=== PATIENT | male | born 1960 | race Caucasian/White ===

== ENCOUNTER 2019-02-21 15:14 | Outpatient (CLI) | payer OTHER, SELFPAY ==
--- NOTE | 2019-02-21 14:30 | DI.RAD_ITS ---
SYMPTOM/DIAGNOSIS: BILAT HIP PAIN BILATERAL HIPS AND PELVIS: There is mild to moderate narrowing of the hip joint spaces, greater superiorly. There is bilateral periarticular spurring, right greater than left. There is some spurring at the inferior SI joints. IMPRESSION: Moderate degenerative changes of both hips.
== END 2019-02-21 15:34 ==
PROVIDERS: PCP Emergency Medicine; Visit Provider Physician Assistant
DX: M25.551 Pain in right hip (principal); M25.552 Pain in left hip; M16.0 Bilateral primary osteoarthritis of hip
CPT/HCPCS: 73501; 73502

== ENCOUNTER 2019-03-30 01:17 | Outpatient (CLI) | payer OTHER, SELFPAY ==
[2019-03-30 10:53] LABS: Anion Gap 6.9 mmol/L (3-11); BUN 13 mg/dL (7-18); CO2 28.1 mmol/L (21.0-32.0); CREATININE 0.85 mg/dL (0.70-1.30); Calcium 8.8 mg/dL (8.5-10.1); Calculated LDL 107 mg/dL; Chloride 106 mmol/L (98-107); Cholesterol 172 mg/dL (50-200); Glucose 99 mg/dL (70-100); HDL Cholesterol 30 mg/dL (40-60); Potassium 4.8 mmol/L (3.5-5.1); Sodium 141 mmol/L (136-145); Triglyceride 179 mg/dL (30-150)
[2019-03-31 11:03] LABS: PSA, Screening 0.9 ng/ml (0-4.5)
== END 2019-03-30 01:37 ==
PROVIDERS: PCP Emergency Medicine; Visit Provider Emergency Medicine
DX: Z00.00 Encounter for general adult medical examination without abnormal findings (principal); I10 Essential (primary) hypertension; Z12.5 Encounter for screening for malignant neoplasm of prostate
CPT/HCPCS: 36415; 80048; 80061; 84153

== ENCOUNTER 2020-05-17 07:05 | Day surgery (SDC) | payer OTHER, SELFPAY ==
[2020-05-17 07:16] VITALS: BP 134/80; PULSE 69; RESP 20; TEMP 36.4; O2SAT 97
[2020-05-17] MEDS: Lactated Ringers 1,000 ML 80 ML IV (07:39)
--- NOTE | 2020-05-17 08:27 | W.PM.HP.N ---
Date of service: 05/17/20 Time of Service: 08:28 Assessment and Plan Assessment and plan (1) Hearing loss: Status: Acute (2) Low back pain: Status: Acute (3) Obstructive sleep apnea: Status: Acute (4) Colon cancer screening: Status: Acute Assessment and plan: Informed consent is obtained for the procedural (explained in simple layman's terms that the pt and/or family could understand) explaining risks vs benefits and alternatives to the procedure and consequences if we do not do the procedure and need/rational for the procedure. Risks include but are not limited to: bleeding, infection, perforation of esophagus, stomach, colon, small intestines, bronchus or trachea, or PTX. This would necessitate emergency surgery to repair the damage w/ possible ostomy; and other associated complications w/ the required surgery. Also complications of anesthesia including aspiration, NE/CVA/. History of Present Illness Consults Consult date: 05/17/20 Narrative: HPI 60 y/o male with history of HTN and GERD presents for colonoscopy screening pre-op. His last screening was in 2008, which was unremarkable. He denies a family history of colon cancer. He denies any changes in bowel habits including bloody or black tarry stools, abdominal pain, diarrhea or constipation. He denies constitutional symptoms. Denies use of marijuana or any other recreational or illegal drugs. Last Echo in 2018 showed EF 65-70%, Aorta was mildly dilated at 3.7cm He denies prior history or family history of adverse reactions or complications with anesthesia. He walks daily and plays golf on a weekly basis for physical activity. His last screening was in 2008 and was unremarkable. He has no family history of colon cancer. He has not had any bowel habit changes. Informed consent is obtained for the procedural (explained in simple layman's terms that the pt and/or family could understand) explaining risks vs benefits and alternatives to the procedure and consequences if we do not do the procedure and need/rational for the procedure. Risks include but are not limited to: bleeding, infection, perforation of esophagus, stomach, colon, small intestines, bronchus or trachea, or PTX. This would necessitate emergency surgery to repair the damage w/ possible ostomy; and other associated complications w/ the required surgery. Also complications of anesthesia including aspiration, NE/CVA/ Review of Systems All systems reviewed & are unremarkable except as noted in HPI and below PFSH Medical History Benign hypertension (08/27/12) Benign prostatic hyperplasia Complete tear of right rotator cuff (12/10/16) surgical repair 2017 Family history of abdominal aortic aneurysm (12/07/13) one brother AAA Family history of thoracic aortic aneurysm (12/07/13) 2 brothers with aneur Generalized osteoarthrosis right hip djd right shoulder rotator cuff lesion Generalized osteoarthrosis right hip djd right shoulder rotator cuff lesion Hearing loss right Low back pain Obstructive sleep apnea (08/11/17) Other retinal detachments left; vision loss Pityriasis versicolor Pupillary abnormality, right (01/03/15) Unilateral inguinal hernia right Surgical History Colonoscopy - MAC 2008;NEG H/O eye surgery L eye, detached retina Rotator Cuff Repair Family History Mother , 92 Essential hypertension Father , 79 Stroke Sister Essential hypertension Brother , 52 Essential hypertension Stomach cancer Brother , 62 Heart disease Colon cancer Maternal Grandfather Stroke Paternal Grandfather No problems noted. Maternal Grandmother No problems noted. Paternal Grandmother No problems noted. Sister No problems noted. Sister No problems noted. Brother , 69 No problems noted. Son No problems noted. Daughter No problems noted. Social History Smoking/Tobacco Use Status: Never Second Hand Exposure: No Smoking risk assessment performed?: Yes Alcohol Intake: current Alcohol Intake frequency: a few times a week Alcohol type: beer Drug use: Never Substance use type: does not use Caregiver/Support person: No Household members: spouse Housing: house Communication Needs: None Do you need help understanding health information?: Never Pets and animals: Yes Pets and animals: dog(s) Sexually active: Yes Do you think of yourself as: straight/heterosexual Current gender identity: male What is your relationship status?: How often do you talk on the phone with friends or family?: twice per week How often do you get together with friends or relatives?: once per week How often do you attend pres[employer]beter[employer] or advent services?: decline to answer Do you belong to any clubs or organized social groups?: no Panel score (0-1 are the most socially isolated patients): 2 What type of physical activity do you participate in: walking and other Details: golf Duration: 30-45 minutes/day Frequency: 3-4 times per week Lynn/Buddhism: Denominational Special lynn needs: No Seatbelt use: always Helmet use: No Drive intox or ride w/intox coach tour driver: No Do you feel safe at home: Yes Do you feel safe in your relationship?: Yes Meds Home Medications and Allergies Home Medications Medication Instructions Recorded Confirmed Type amlodipine 5 mg PO HS 05/15/20 05/17/20 History lisinopril 20 mg PO HS 05/15/20 05/17/20 History pantoprazole 40 mg PO HS 05/15/20 05/17/20 History Allergies Allergy/AdvReac Type Severity Reaction Status Date / Time No Known Drug Allergies Allergy Verified 05/15/20 13:18 Exam Narrative Exam Narrative: GENERAL APPEARANCE: Alert, healthy appearance, oriented, in no acute distress SKIN: No hyperpigmentation, vitiligo, or suspicious lesions No rashes. HYDRATION: Well hydrated HEAD, EYES, EARS, NECK, AND THROAT: Head is normocephalic, pupils equal, round, reactive to light and accommodation, ocular movement intact, sclera clear and no jaundice. Dentition intact. NECK: Supple, no lymphadenopathy. Trachea midline. LUNGS: normal respiration, clear to auscultation HEART: Regular rate and rhythm, EXTREMITY: No edema or cyanosis ABDOMEN: No hepatosplenomegaly, non tender to palpation, no masses or distention, no hernias. Normal bowel sounds NEURO: no focal neuro deficits. Results Last Vital Signs Temp 36.4 C L 05/17/20 07:16 Pulse 69 05/17/20 07:16 Resp 20 05/17/20 07:16 BP 134/80 05/17/20 07:16 Pulse Ox 97 05/17/20 07:16 COVID-19 Screening Have you,or household,traveled outside [place] in last 14 days?: No Had IN PERSON contact w/suspected or confirmed C-19 person: No
--- NOTE | 2020-05-17 09:18 | W.COLOREPORT ---
Date of service: 05/17/20 Time of Service: 09:18 Colonoscopy Report Date of procedure: 05/17/20 Pre-op diagnosis general: screen Post-op diagnosis procedure note: same Surgeon: Wanda Alejandre Anesthesia proc note operative: GETA Estimated blood loss (mL): 0 Pathology: none sent Complications: None Disposition: same day Prep: Miralax/Dulcolax Retraction Time: 10 mins Procedure Description: After informed consent was obtained the patient was taken to the procedure room and placed in a left decubitous position. Monitors were applied and a time out was done. The patients name, date of , procedure, allergies to medications and metal in their body was reviewed. The patient was then sedated. Once sedated and comfortable a rectal exam was done. External exam was normal. Internal exam revealed a normal sphincter tone and no palpable masses. The prostate nl. The scope was then introduced and retrofelexed. No internal hemorrhoids were identified. The scope was then advanced to the cecum w/ mild difficulty. 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 The TI and appendiceal orifice were identified. The prep was good. The scope was then slowly retracted over 10 minutes back into the rectum. There are no polyps diverticula or strictures apparent. There are no AVMs. The mucosa is pink an dhealthy. The scope was removed and the patient was woken up and taken back to Same day surgery in stable condition. The patient tolerated the procedure well and there were no immediate complications. Follow up: The patient should follow up in 10 years unless they develop changes in bowel habits or other new gastrointestinal complaints.
[2020-05-17] MEDS: Dicyclomine 20 MG TAB PO (09:38)
[2020-05-17 09:50] VITALS: BP 148/104; PULSE 61; RESP 18; TEMP 37; O2SAT 96
--- NOTE | 2020-05-17 10:27 | W.PM.DSUDISC ---
Discharge Plan Disposition Patient Disposition: HOME Condition: Good Discharge Details Reason For Visit: colon can screen Attending Provider: Wanda Alejandre Primary Care Provider: Amarjit Patel Home Meds and New Rx's Prescriptions: No Action lisinopril 20 mg tablet 20 mg PO HS RF: 0 amlodipine 5 mg tablet 5 mg PO HS RF: 0 pantoprazole 40 mg tablet,delayed release (DR/EC) 40 mg PO HS RF: 0 Discharge Instructions Additional Instructions: Findings:normal Follow up:repeat in 5 yrs time Please call if you develop: fevers >101.5 Nausea or Vomiting Abdominal pain that is not transient DAY SURGERY UNIT POST COLONOSCOPY INSTRUCTIONS 1. Because there will be medication in your system for the next 24 hours, you may feel a little sleepy. Your coordination will be affected. Therefore: a. Do not drive or operate dangerous equipment for 24 hours. b. Do not drink alcohol beverages for 24 hours (not even beer). c. Plan to go home and rest for the day. 2. Generally there are no restrictions on your activity after a day or so has gone by, but you may feel a bit fatigued for a few days. 3 After you arrive home you may have a light meal and return to a normal diet as you can tolerate it without feeling sick to your stomach. 4. After surgery, you may feel pain or discomfort. This should be only transient, but if it persists please contact your doctor. 5. If there are any questions regarding the findings of your procedure, please feel free to contact your doctor. 6. If you are unable to contact your doctor with a problem, contact the hospital at [phone]. 7. Continue all your regular medications unless directed otherwise. I understand the above instructions and have no questions. Signature of Patient or Responsible Adult Escort Date/Time Name of Responsible Adult Escort Signature of Nurse Date/Time Stand Alone Forms: Emi Dewey (LJU) Activity:: No lifting over 20 pounds or strenuous activity x24 hours Diet:: Small light meals x24 hours Discharge Orders Discharge Orders: Discharge Order (Routine); Ordered 05/17/20 Ordered By: Wanda Alejandre DS: Diagnosis Discharge Diagnosis (1) Hearing loss: Status: Acute (2) Low back pain: Status: Acute (3) Obstructive sleep apnea: Status: Acute (4) Colon cancer screening: Status: Acute
== END 2020-05-17 10:38 | disposition home or self-care (01) ==
PROVIDERS: PCP Emergency Medicine; Visit Provider Surgery
PROC: 0DJD8ZZ Inspection of Lower Intestinal Tract, Via Natural or Artificial Opening Endoscopic (ICD-10-PCS; CPT 45378; principal; 2020-05-17 08:30)
DX: Z12.11 Encounter for screening for malignant neoplasm of colon (principal); G47.33 Obstructive sleep apnea (adult) (pediatric)
CPT/HCPCS: 45378; 99221; J2001

== ENCOUNTER 2020-07-21 13:45 | Outpatient (REF) | payer OTHER, SELFPAY ==
[2020-07-24 09:54] LABS: COVID-19 RT-PCR Result NEGATIVE (Negative)
== END 2020-07-21 14:05 ==
LOC: LBN 13:45
PROVIDERS: PCP Emergency Medicine; Visit Provider Pediatrics
DX: Z11.59 Encounter for screening for other viral diseases (principal)
CPT/HCPCS: U0003

== ENCOUNTER 2020-10-24 09:37 | Outpatient (CLI) | payer OTHER, SELFPAY ==
[2020-10-25 15:13] LABS: COVID-19 RT-PCR UVMMC Result Negative (Negative)
== END 2020-10-24 09:38 | disposition home or self-care (01) ==
LOC: LBO 09:37
PROVIDERS: PCP Emergency Medicine; Visit Provider Emergency Medicine
DX: Z20.822 Contact with and (suspected) exposure to COVID-19 (principal)
CPT/HCPCS: U0003

== ENCOUNTER 2020-10-30 02:53 | Outpatient (CLI) | payer OTHER, SELFPAY ==
[2020-10-31 12:25] LABS: COVID-19 RT-PCR UVMMC Result Negative (Negative)
== END 2020-10-30 02:54 | disposition home or self-care (01) ==
LOC: LBO 02:53
PROVIDERS: PCP Emergency Medicine; Visit Provider Emergency Medicine
DX: Z20.822 Contact with and (suspected) exposure to COVID-19 (principal)
CPT/HCPCS: U0003

== ENCOUNTER 2020-11-26 03:05 | Outpatient (CLI) | payer OTHER, SELFPAY ==
[2020-11-27 17:56] LABS: COVID-19 RT-PCR UVMMC Result Negative (Negative)
== END 2020-11-26 03:06 | disposition home or self-care (01) ==
LOC: LBO 03:05
PROVIDERS: PCP Emergency Medicine; Visit Provider Emergency Medicine
DX: Z20.822 Contact with and (suspected) exposure to COVID-19 (principal)
CPT/HCPCS: U0003

== ENCOUNTER 2021-04-29 16:12 | Outpatient (REF) | payer OTHER, SELFPAY ==
[2021-05-01 15:35] LABS: COVID-19 RT-PCR UVMMC Result Negative (Negative)
== END 2021-04-29 16:13 | disposition home or self-care (01) ==
LOC: LBN 16:12
PROVIDERS: PCP Emergency Medicine; Visit Provider Nurse Practitioner Family
DX: Z20.822 Contact with and (suspected) exposure to COVID-19 (principal)
CPT/HCPCS: U0003

== ENCOUNTER 2021-06-04 18:02 | Outpatient (REF) | payer OTHER, SELFPAY ==
[2021-06-06 10:16] LABS: COVID-19 RT-PCR UVMMC Result Negative (Negative)
== END 2021-06-04 18:03 | disposition home or self-care (01) ==
LOC: LBN 18:02
PROVIDERS: PCP Emergency Medicine; Visit Provider Family Medicine
DX: Z20.822 Contact with and (suspected) exposure to COVID-19 (principal); J06.9 Acute upper respiratory infection, unspecified
CPT/HCPCS: U0003

== ENCOUNTER 2021-09-27 10:53 | Outpatient (CLI) | payer OTHER, SELFPAY ==
--- NOTE | 2021-09-27 11:00 | RT.EKG_ITS ---
APPROVED REPORT Exam: Resting ECG Reason for Exam: syncope Patient Location: O HR:57 bpm ECG Measurements Heart Rate 57 AXIS UT 183 P 48 QRSd 91 QRS 64 QT 425 T 39 QTc 413 Conclusion Sinus bradycardia...rate< 60 Normal Electrocardiogram
== END 2021-09-27 10:54 | disposition home or self-care (01) ==
PROVIDERS: PCP Family Medicine; Visit Provider Family Medicine
DX: I10 Essential (primary) hypertension (principal); R55 Syncope and collapse; Z12.5 Encounter for screening for malignant neoplasm of prostate
CPT/HCPCS: 93010

== ENCOUNTER 2021-11-08 01:59 | Outpatient (CLI) | payer OTHER, SELFPAY ==
[2021-11-08 14:19] LABS: HCT 42.9 % (40.0-50.0); HGB 14.5 g/dL (13.5-17.5); MCH 30.9 pg (27.0-33.0); MCHC 33.8 % (32.0-36.0); MCV 91.5 fL (80-95); MPV 9.2 fL (8.0-11.0); Platelet Count 225 10^3/uL (130-400); RBC 4.69 10^6/uL (4.36-5.78); RDW 12.7 % (11.8-14.1); RDW-SD 42.1 fL; WBC 7.23 10^3/uL (4.4-10.8)
[2021-11-08 15:02] LABS: ALT 60 U/L (16-63); AST 29 U/L (15-37); Albumin 3.9 g/dL (3.4-5.0); Alkaline Phosphatase 58 U/L (46-116); Anion Gap 7.5 mmol/L (3-11); BUN 13 mg/dL (7-18); Bilirubin, Total 0.4 mg/dL (0.2-1.0); CO2 27.5 mmol/L (21.0-32.0); CREATININE 0.9 mg/dL (0.70-1.30); Calcium 8.5 mg/dL (8.5-10.1); Calculated LDL 89 mg/dL (<100); Chloride 105 mmol/L (98-107); Cholesterol 177 mg/dL (<200); Glucose 96 mg/dL (74-106); HDL Cholesterol 28 mg/dL (40-60); Potassium 3.7 mmol/L (3.5-5.1); Sodium 140 mmol/L (136-145); Total Protein 7.3 g/dL (6.4-8.2); Triglyceride 300 mg/dL (<150)
[2021-11-08 21:41] LABS: PSA, Screening 0.8 ng/mL (<=4.5)
== END 2021-11-08 02:00 | disposition home or self-care (01) ==
LOC: LBO 01:59
PROVIDERS: PCP Family Medicine; Visit Provider Family Medicine
DX: I10 Essential (primary) hypertension (principal); R55 Syncope and collapse; Z12.5 Encounter for screening for malignant neoplasm of prostate
CPT/HCPCS: 36415; 80053; 80061; 84153; 85027

== ENCOUNTER 2022-08-18 12:43 | Outpatient (CLI) | payer OTHER, SELFPAY ==
--- NOTE | 2022-08-18 11:15 | DI.RAD_ITS ---
Exam(s) XR SHOULDER LT COMPLETE 2+V EXAM: XR SHOULDER LT COMPLETE 2+V CLINICAL HISTORY: pain and swelling, M25.512. TECHNIQUE: 2D digital imaging was performed of the left shoulder. Five images were obtained. AP, G rashey, Y-view and axillary views were obtained. COMPARISON: CR LEFT SHOULDER COMPLETE from 09/16/2011 FINDINGS: BONES: No acute fracture is present. No bony destructive lesion is seen. JOINTS: No dislocation present. There are hypertrophic changes seen at the acromioclavicular joint. Mild spurring is seen at the greater tuberosity. SOFT TISSUE: Normal. IMPRESSION: Degenerative changes of the left shoulder as described. DATA REPOSITORY: RADIATION DOSE DELIVERED:
== END 2022-08-18 13:03 ==
LOC: DI 12:43
PROVIDERS: PCP Nurse Practitioner Family; Visit Provider Nurse Practitioner Family
DX: M25.512 Pain in left shoulder (principal); M75.82 Other shoulder lesions, left shoulder; M25.812 Other specified joint disorders, left shoulder
CPT/HCPCS: 73030

== ENCOUNTER 2022-09-10 01:20 | Outpatient (CLI) | payer OTHER, SELFPAY ==
--- NOTE | 2022-09-10 06:45 | DI.CT_ITS ---
Exam(s) CT ABDOMEN PELVIS W EXAM: CT ABDOMEN PELVIS W CLINICAL HISTORY: concern for Virchow's node,soft tissue swelling, f/u abnl imaging,R22.9 TECHNIQUE: Imaging Protocol: Axial computed tomography images with coronal and sagittal reformatted images were created and reviewed CONTRAST MATERIAL: Intravenous: Omnipaque 350 Contrast volume:100 mL Oral: Yes COMPARISON: No exams were available for comparison FINDINGS: ABDOMEN: Lung Bases: Normal where visualized. Liver: Normal density. There are few tiny hypodensities seen in the liver. They are too small for fu rther characterization. No suspicious hepatic masses are seen. There is a 0.9 cm cyst in the left l obe of the liver. Portal, Superior Mesenteric, and Splenic Veins: Unremarkable. Gallbladder and Biliary Tract: No radiodense calculus or dilation. Pancreas: Normal density, no abnormal calcifications or inflammatory process. Spleen: Normal. Adrenals: No masses seen. Kidneys: Normal size, contour and axis. No radiodense stones or obstructive uropathy. There are bilat eral simple renal cysts. No follow-up is recommended. The largest is in the left kidney and measure s 3.9 x 4.3 cm. No solid renal masses are present. Abdominal Aorta: Abdominal portion non-dilated. There is mild atherosclerosis. Bowel: No obstruction or bowel wall thickening. Appendix is unremarkable. There is a diverticulum ass ociated with the 2nd portion of the duodenum. Peritoneal Cavity: No ascites, collection or mesenteric inflammatory response. No free air. Lymph Nodes: Within normal limits. Bones: Within normal limits for the patient's age. No aggressive osseous lesions. Soft Tissues: Unremarkable. PELVIS: Bladder: There is mild diffuse thickening of the wall of the urinary bladder. This may be due to unde rdistention. No pericystic inflammatory changes are seen. Chronic bladder outlet obstruction may also have this appearance. Reproductive Organs: Mildly enlarged prostate gland. Lymph Nodes: Within normal limits. Bones: Within normal limits for the patient's age. IMPRESSION: 1. No acute abdominal pelvic process. No evidence of an abdominal pelvic mass. 2. Mildly enlarged prostate gland. 3. Mild diffuse thickening of the wall of the urinary bladder. This may be due to underdistention. An inflammatory or infectious process cannot be entirely excluded. Chronic bladder outlet obstruction s hould also be considered. RADIATION DOSE DELIVERED: 743.78mGy.cm Total DLP DATA REPOSITORY: All CT scans at this facility are submitted to the National Radiology Data Registry (NRDR) Dose Index Registry (DIR) with the [employer] (ACR). RADIATION OPTIMIZATION: All CT scans at this facility use at least one of these dose optimization te chniques: automated exposure control; mA and/or kV adjustment per patient size (includes targeted exa ms where dose is matched to clinical indication); or iterative reconstruction.
[2022-09-10 08:15] LABS: CREATININE 0.9 mg/dL (0.70-1.30); Estimated GFR 95.97 (mL/min/1.73m2)
[2022-09-10] MEDS: Barium Sulfate 2% W/V-Berry Smoothie 450 ML BTL PO (08:32)
[2022-09-10] MEDS: Omnipaque 350 MG/ML 500 ML BTL-Imaging package IJ (09:13)
[2022-09-10] MEDS: Normal Saline - Diluent 50 ML VIAL IJ (09:14)
== END 2022-09-10 01:40 ==
LOC: DI 01:20
PROVIDERS: PCP Nurse Practitioner Family; Visit Provider Nurse Practitioner Family
DX: R19.09 Other intra-abdominal and pelvic swelling, mass and lump (principal); Z01.812 Encounter for preprocedural laboratory examination; K76.89 Other specified diseases of liver; N28.1 Cyst of kidney, acquired; N32.89 Other specified disorders of bladder; N40.0 Benign prostatic hyperplasia without lower urinary tract symptoms; R22.1 Localized swelling, mass and lump, neck
CPT/HCPCS: 74177; 82565

== ENCOUNTER 2022-09-23 02:06 | Outpatient (CLI) | payer OTHER, SELFPAY ==
--- NOTE | 2022-09-23 06:30 | DI.MRI_ITS ---
Exam(s) MR UPPER JOINT LT WO EXAM: MR UPPER JOINT LT WO CLINICAL HISTORY: ? ROTATOR CUFF TEAR,lt shoulder pain, m25.512 TECHNIQUE: Multiplanar multisequence MRI of the shoulder was performed. COMPARISON: CR XR SHOULDER LT COMPLETE 2+V from 08/18/2022 FINDINGS: MARROW:There is no evidence of fracture, Hill-Sachs deformity, nor ominous osseous lesions. ROTATOR CUFF MECHANISM: AC JOINT/ACROMIUM: There is significant degenerative changes at the AC joint with some impingement th is level.. There is no evidence of os acromiale. Supraspinatus: There is a full-thickness tear the supraspinatus tendon with retraction musculotendino us junction to the mid humeral head level. No prominent muscle belly atrophy. Infraspinatus: Intact. No evidence of tear nor muscle atrophy. Teres Minor: Intact. No evidence of tear nor muscle atrophy. Subscapularis/anterior cuff: Some tendon thinning but no high-grade tear. BICEPS TENDON: Biceps tendon within the intertubercular groove is significantly thinned and is perche d over the lesser tuberosity. LABRUM: Some in signal is seen within the anterior labrum. There is no prominent labral tear despite the intra-articular biceps been quite thin. No evidence of paralabral cyst. Inferior glenohumeral ligament appears intact. GLENOHUMERAL JOINT: There are significant osteoarthritic degenerative changes. Some chondral narrowi ng. Also osteophytes. Small osteophyte on the inferior articular surface of the humeral head. Also anteriorly at the level the lesser tuberosity over which the attenuated biceps tendon is stretched. Small amount of increased joint fluid. Some synovial thickening is noted in the inferior recess. T here is no obvious loose intra-articular bodies. QUADRILATERAL SPACE: No evidence of mass in the region of the axillary nerve and dorsal circumflex hu meral vessels. Visualized triceps muscle at this level appears unremarkable. IMPRESSION: 1. Prominent full-thickness tear of the rotator tear cuff supraspinatus tendon with retraction of the musculotendinous junction to the level of the mid humeral head. Infraspinatus and teres minor are i ntact. Some attenuation of the anterior cuff-subscapularis but without high-grade tear. 2. Biceps tendon is significantly thinned and is perched over bony excrescence-osteophyte at the leve l of the anterior tibial tubercle. Intra-articular aspect of the biceps is significantly attenuated. No prominent labral tear identified. No evidence of paralabral cyst. 3. Significant osteoarthritic degenerative changes in the glenohumeral joint. Small joint effusion a nd some synovial thickening in the inferior recess. No obvious loose intra-articular bodies. DATA REPOSITORY:
== END 2022-09-23 02:26 ==
LOC: DI 02:06
PROVIDERS: PCP Nurse Practitioner Family; Visit Provider Student in an Organized Health Care Education/Training Program
DX: M25.512 Pain in left shoulder (principal); M75.121 Complete rotator cuff tear or rupture of right shoulder, not specified as traumatic; M67.814 Other specified disorders of tendon, left shoulder; M25.412 Effusion, left shoulder; M19.012 Primary osteoarthritis, left shoulder; M67.812 Other specified disorders of synovium, left shoulder
CPT/HCPCS: 73221

== ENCOUNTER 2022-10-24 06:08 | Day surgery (SDC) | payer OTHER, SELFPAY ==
[2022-10-24] VITALS (11 sets, daily range): BP systolic 84–151; BP diastolic 51–108; PULSE 61–83; RESP 14–23; TEMP 36.3–37.1; O2SAT 93–97; BMI 29.2
--- NOTE | 2022-10-24 06:46 | W.ANESPRE ---
General Info Date of Service Date Performed: 10/24/22 Height: 5 ft 5 in Weight: 79.8 kg Body Mass Index (BMI): 29.2 Surgical Procedure: Operation Date: 10/24/22 07:40 Proposed Procedure Side Surgeon p Shoulder Rotator Cuff Arthroscopic w/Extensive Debridement, Biceps Tenodesis, Subacromial Decompression Left Michael Hung MD Meds Allergies and Home Medications Allergies Allergy/AdvReac Type Severity Reaction Status Date / Time No Known Drug Allergies Allergy Verified 10/23/22 12:03 Home Medication Medication Instructions Recorded amlodipine 5 mg tablet 5 mg PO HS #90 tabs 02/05/22 pantoprazole 40 mg tablet,delayed 40 mg PO HS #90 tabs 10/22/22 release losartan 100 1 tab PO HS 10/23/22 mg-hydrochlorothiazide 25 mg tablet aspirin 81 mg tablet,delayed 81 mg PO DAILY prevent blood clot 10/24/22 release 7 days #7 tabs naproxen 250 mg tablet 250 - 500 mg PO BID PRN #40 tabs 10/24/22 oxycodone 5 mg tablet 5 - 10 mg PO Q4H PRN moderate to 10/24/22 severe pain #18 tabs Current Visit Medications: Current Medications Generic Name Dose Route Start Last Admin Trade Name Freq PRN Reason Stop Dose Admin Ringer's Solution 1,000 mls @ 30 mls/hr 10/24/22 06:00 IV 11/22/22 23:59 INFUSION JAKUB Cefazolin Sodium/Dextrose 2 gm in 50 mls @ 100 mls/hr 10/24/22 06:00 Ancef Duplex IVPB 11/22/22 23:59 PREOP JAKUB IV Miscellaneous Supplies 1 each 10/24/22 06:00 Iv Access IV 11/22/22 23:59 DIRECTED JAKUB Sodium Chloride 0 ml 10/24/22 06:00 Normal Saline Flush 10 Ml Syr IV 11/22/22 23:59 PRN PRN Sodium Chloride 0 ml 10/24/22 06:00 Normal Saline 10 Ml Vial IJ 11/22/22 23:59 DIRECTED PRN Sterile Water 0 ml 10/24/22 06:00 Water,Injection,Sterile 10 Ml Vial IJ 11/22/22 23:59 DIRECTED PRN PFSH Active Problems Active Problems: Problem Status Onset Code Bursitis of left shoulder M75.52 Impingement syndrome of left shoulder M75.42 Tendinitis of long head of biceps brachii of left shoulder M75.22 Left rotator cuff tear M75.102 Pityriasis versicolor B36.0 Other retinal detachments H33.8 Obstructive sleep apnea 08/11/17 G47.33 Low back pain M54.5 Hearing loss H91.90 Family history of abdominal aortic aneurysm 12/07/13 Z82.49 Benign prostatic hyperplasia N40.0 Vision loss of left eye H54.62 Essential hypertension I10 Left shoulder pain M25.512 Soft tissue swelling R22.9 Medical History Medical History (Updated 10/24/22 @ 07:15 by Michael Hung MD) Bursitis of left shoulder Generalized osteoarthrosis right hip djd right shoulder rotator cuff lesion Impingement syndrome of left shoulder Pupillary abnormality, right (01/03/15) Tendinitis of long head of biceps brachii of left shoulder Surgical History Surgical History Colonoscopy - MAC 2008;NEG H/O eye surgery L eye, detached retina Rotator Cuff Repair Tobacco Smoking/Tobacco Use Status: Never Passive smoking exposure: Yes Second hand exposure: Yes Alcohol Alcohol Intake: current Alcohol intake frequency: holidays/special occasions only Alcohol type: beer, wine and hard liquor Substance Use Substance use: Never Substance use type: does not use Vital Signs and Lab Results Vital Signs Most Recent Vital Signs in EMR: Most Recent Vital Signs Temp Pulse Resp BP Pulse Ox 36.7 C 78 16 134/89 97 10/24/22 06:19 10/24/22 06:19 10/24/22 06:19 10/24/22 06:19 10/24/22 06:19 Lab Results Blood Type / Crossmatch: No Data to Display Complete Blood Count: No Data to Display Complete Metabolic Panel: No Data to Display Liver Function Panel: No Data to Display Coagulation Panel: No Data to Display Cardiac Panel: No Data to Display Arterial Blood Gas: No Data to Display Venous Blood Gas: No Data to Display Pancreas Panel: No Data to Display Thyroid Panel: No Data to Display Infectious Disease: No Data to Display Blood Cultures: No Data to Display Toxicology Panel: No Data to Display Anesthesia Assessment and Plan Anesthesia History Personal History: No History of Anesthesia Complications Family History: No Family History of Anesthesia Complications Exercise Tolerance Exercise Tolerance: Metabolic Equivalents>4 Pertinent Negatives Pertinent Negatives: No Symptoms of GERD, No Major Cardiovascular Symptoms or Complaints, No Major Pulmonary Symptoms or Complaints and No History of CVA/TIA Cardiac & Pulmonary Exam Cardiac Exam: Normal S1/S2 Heart Sounds Pulmonary Exam: Clear Bilateral Breath Sounds Implantable Cardiac Device Does patient have a Pacemaker or an ICD?: No Airway Exam Known Difficult Airway: No Mallampati Class: 2 Mouth Opening: Normal (> 3cm) Thyromental Distance: Greater than 3 cm Neck Range of Motion: Full ROM Neck Circumference: Normal Teeth Condition: Normal Dentition ASA Classification ASA Score: ASA 2 Emergency Case?: No NPO Status NPO Status: NPO Clears >2 hours, Solids >8 hours Anesthesia Plan Resuscitation Status: Full Code Anesthesia Technique: General Anesthesia Airway Planned: Endotracheal Tube Pain Management: Surgeon and patient request nerve block Monitors Used: Standard Monitors
[2022-10-24] MEDS: Lactated Ringers 1,000 ML 30 ML IV (07:10)
--- NOTE | 2022-10-24 07:14 | W.PM.DSUDISC ---
Date of service: 10/24/22 Time of Service: 11:30 Discharge Plan Disposition Patient Disposition: Home Discharge Details Attending Provider: Michael Hung Primary Care Provider: Kee Portillo Home Meds and New Rx's Prescriptions: New naproxen 250 mg tablet 250 - 500 mg PO BID PRNQty: 40 0RF Rx Instructions: take with a meal aspirin 81 mg tablet,delayed release (DR/EC) 81 mg PO DAILY 7 Days Qty: 7 0RF oxycodone 5 mg tablet 5 - 10 mg PO Q4H MDD 30 mg PRN (Reason: moderate to severe pain) Qty: 18 0RF Continued amlodipine 5 mg tablet 5 mg PO HS Qty: 90 3RF pantoprazole 40 mg tablet,delayed release (DR/EC) 40 mg PO HS Qty: 90 3RF losartan-hydrochlorothiazide 100-25 mg tablet 1 tab PO HS Discharge Instructions Additional Instructions: Surgery: Left shoulder arthroscopy with rotator cuff repair (supraspinatus), biceps tenodesis, extensive debridement, and subacromial decompression. Activity: For 6 weeks, you should keep your arm at your side in a neutral position at all times except for physical therapy. Do not try to lift or raise your arm using your own muscles. You should use the sling whenever you are out of the house. You may have to adjust the abduction pillow or remove it for comfort. At home it is best to remove the sling and rest the arm on a pillow at your side or support the operative side with your other hand. You may allow the arm to dangle at your side. A physical therapy prescription will be sent electronically to begin in about 3 weeks. Prescriptions: Aspirin 81 mg take 1 daily to prevent a blood clot for 7 days Naproxen 250 mg take 1-2 every 12 hours with a meal as needed for moderate pain Oxycodone 5 mg take 1-2 every 4-6 hours as needed for severe pain You may use [id number] Tylenol (acetaminophen) as needed for mild pain. These pain medications may be taken all at once or in different combinations as needed. Also, recommend Colace (docusate) as a stool softener as surgery and pain medicine cause constipation. You may try [id number] diphenhydramine (Benadryl) 25-50 mg nightly as a sleep aid Dressings: Remove shoulder bandage after 3 days. Leave the sticky Steri-Strips in place until they fall off or remove them after you shower. Cover the incisions with Band-Aids or leave them open to air. You may shower after 5 days. Follow-up: 10-[address] Hung You may take off the leg compression stockings this evening at home. You may also leave them on a few days longer if you have a history of leg swelling or edema. Let us know right away if you develop any redness, drainage, fevers, chest pain, or trouble breathing. Do not drink alcohol or drive for at least 24 hours after anesthesia. Please call the office during business hours with any questions or concerns. Discharge Orders Discharge Orders: Discharge Order (Routine); Ordered 10/24/22 Ordered By: Michael Hung DS: Diagnosis Discharge Diagnosis (1) Left rotator cuff tear: Status: Acute (2) Arthritis of left glenohumeral joint: Status: Acute
--- NOTE | 2022-10-24 07:18 | W.PM.OP ---
Date of service: 10/24/22 Time of Service: 07:30 Operative Note Operative Note DATE OF PROCEDURE: 10/24/22 PRE-OP DIAGNOSIS: Left: 1. Rotator cuff tear 2. LHB tendinopathy 3. Bursitis 4. Impingement 5. Glenohumeral arthrosis POST-OP DIAGNOSIS: same PROCEDURE: Left: 1. Rotator cuff repair, CPT# 41079. This involved repair of the supraspinatus using anchors and sutures to reattach the rotator cuff back to the footprint of the greater tuberosity. 2. Arthroscopic biceps tenodesis, CPT# 91099. This involved arthroscopically suturing and reattaching the long head of the biceps tendon to the proximal humerus at the superior margin of the bicipital groove with a screw at the correct tension. 3. Extensive debridement, CPT# 60155. This involved using arthroscopic hand instruments, power instruments, and radiofrequency instruments to release the long head of the biceps tendon and debride areas of labral tearing, SLAP tearing, rotator interval disruption, significant synovitis, and chondromalacia about the central glenoid, lesser tuberosity, and greater tuberosity all working within the glenohumeral joint anteriorly, superiorly and posteriorly. 4. Subacromial decompression with partial acromioplasty, CPT# 70337. This involved using arthroscopic power instruments and a radiofrequency wand to complete a bursectomy and smooth the undersurface of the acromion. The application assistant was medically required in order to help assist in techniques above, which require positioning the arm, holding the arthroscope, and manipulating multiple instruments and sutures at the same time. This cannot be done without the help of an experienced application assistant. SURGEON: Michael Hung GEOPHYSICIST: Lauryn Abad ANESTHESIA TYPE: General LMA/ETT and Primary Nerve Block Refer to Anesthesia Record ESTIMATED BLOOD LOSS: 10 PATHOLOGY: none sent COMPLICATIONS: None Patient was transported to: PACU Patient's condition: stable Implants: Arthrex: 4.75mm SwiveLocks x 2 Indications: The patient was diagnosed with the above conditions and appropriately indicated for surgical intervention. Please see complete medical record for details. Findings: Exam under anesthesia: Moderately restricted forward elevation, mildly restricted external rotation and internal rotation. Stiff mechanical, likely glenohumeral arthrosis?related, endpoints unable to be released through manipulation. Glenohumeral joint: Moderate joint space narrowing, generalized chondromalacia, worst about the exposed lesser and greater tuberosities and central glenoid. Significant labral degeneration fraying anteriorly superior and posteriorly. Significant disruption of the anterior rotator interval space with medial biceps high-grade partial tearing, medial dislocation out of the bicipital groove, large upper portion chronic?appearing scarred subscapularis rotator cuff tear, obvious full-thickness supraspinatus rotator cuff tear with significant undersurface fraying, significant anterior and posterior synovitis. Moderate axillary pouch synovitis. Early marginal osteophytes. Subacromial space: Significant bursitis. Significant irregularity and impinging undersurface acromion on rotator cuff. Chronic fibrinous changes about the exposed supraspinatus footprint on the greater tuberosity. Disruption starting anteriorly at the subscapularis, transversing the transverse humeral ligament and biceps, and full-thickness supraspinatus with moderate retraction. Significantly frayed tendon edges but otherwise reasonable tissue quality. Intact infraspinatus. Procedure Description: In the operating room, general anesthesia was induced. Bilateral shoulders were examined. The patient was positioned in the beachchair position. All bony prominences were well-padded. Preoperative antibiotics were administered. The shoulder was prepped and draped in the usual sterile fashion. The correct patient, procedure, and side of the procedure were all verified prior to incision. Starting through the posterior portal a standard complete diagnostic arthroscopy was performed of the glenohumeral joint including inspection of the long head of the biceps, anterior and superior labrum, subscapularis tendon, supraspinatus and infraspinatus tendons, and axillary recess. The glenoid and humeral head cartilage as well as the posterior labrum were inspected from an anterior viewing portal. Visualization and anatomy was challenging given the notable degenerative changes and complex disruption of the anterior and superior structures. Significant time in care was spent on the extensive debridement alternating working and viewing from the glenohumeral and subacromial space into the glenohumeral joint with findings and interventions noted above. All of the biceps tendon was significantly disrupted, it was felt that relocating it from its medially dislocate position to lateral would allow better scientologist of the biceps sling and the anterior leading edge of the supraspinatus at the supraspinatus initially demonstrated limited excursion from medial to lateral. Debriding the biceps tendon of high-grade partial tearing a reasonable cordlike structure was recreated and secured using a FiberLink suture tape cinched around the tendon and then shuttled through it. This was tested and demonstrated good fixation of the biceps. It was withdrawn out an anterior superior cannula relocating it to the bicipital groove, and direct arm pressure resting the proximal edge at the superior margin of the bicipital groove. The remainder of the anterior space was thoroughly debrided. The subscapularis was better opposed now from medial to lateral over the exposed greater tuberosity. It was significantly scarred to the anterior capsule and given the pre-existing limited range of motion, decision made to admit repair of this chronic tear in order to prevent postoperative stiffness without gain of significant function. MGHL was retracted past the labrum and exposed and released to increase range of motion postoperatively as well. Starting through the posterior portal, the arthroscope was directed into the subacromial space. A lateral 50 yard line lateral portal was created. A combination of power instruments and a radiofrequency ablator were used to debride bursitis anteriorly, posteriorly, and laterally as well as expose and smooth bone spurring on the undersurface of the acromion. The coracoacromial ligament was debrided of fraying type tearing, but not significantly released. The bursectomy was completed viewing laterally and working from posteriorly and the rotator cuff was thoroughly inspected with findings noted above. The complete supraspinatus tear was inspected, arm position optimized for repair, and it was released and debrided to healthy tissue margins all about the tear. Appropriate excursion and reduction confirmed with cuff grasper. The greater tuberosity was debrided and a tuberoplasty type reduction was made of prominent bony osteophyte like prominences both to improve bone quality for tendon healing and reduce acromiohumeral narrowing and subacromial impingement. A medial row of 4.75 mm SwiveLock anchors was placed loaded with fiber tapes. The anterior anchor contained the biceps tenodesis repair suture with appropriate de-tensioning on the biceps to reduce pain but enough tension to maintain reduced position in the bicipital groove. The FiberTape's from these medial row anchors were shuttled through the appropriate levels of the supraspinatus medially. A single tape from the anterior and posterior anchors was brought out the lateral Beverly cannula in the clear insert used to confirm provisional reduction over the majority of the greater tuberosity posteriorly with slight more bone exposed anteriorly given less tissue available for repair here. An additional FiberLink was placed for anteriorly incorporating some of the displaced anteriormost fibers and secured with the links to an anterior lateral row anchor. The remaining tapes were brought out, and additional FiberLink placed most posteriorly incorporating the most posterior aspect of the tear and upper wrapping around portion of the infraspinatus and secured to a posterior lateral anchor. There was good rotator cuff reduction and tissue compression over the prepared footprint. The repair was examined and stable through probing and range of motion. The shoulder was drained of arthroscopic fluid. All portal sites were copiously irrigated. These incisions were closed using 3-0 Monocryl in a buried fashion and then covered with Mastisol, Steri-Strips, Xeroform, dry gauze, and ABDs. The dressings were covered and secured with Medipore tape. The operative extremity was placed into a sling for immobilization. The patient awoke from anesthesia without complication and was transferred to the recovery room in a stable condition.
[2022-10-24] MEDS: ceFAZolin 2 GM/50 ML BAG IVPB (07:40)
--- NOTE | 2022-10-24 08:18 | W.ANESNERVE ---
Nerve Block Single Injection Procedure Date and Time Date Performed: 10/24/22 Procedure Start: 07:12 Location Where Procedure Performed Procedure Location: Day Surgery Unit Reason Performed: Postoperative Analgesia Requesting Provider: Michael Hung Timeout Performed Timeout Performed: Yes Monitoring Used ECG, Blood Pressure and SpO2 Sterility Sterility: Hand Hygiene, Surgical Cap, Surgical Mask, Sterile Gloves and Chlorhexidine Sedation Given During Procedure Sedation Given (Indicate Dose Given): Versed IV Dose:: 2 mg Patient Mental Status Patient Mental Status: Sedate with meaningful communication Nerve Block 1st Nerve Block: Laterality: Left Block Type: Interscalene Ultrasound Image Saved?: Yes Needle / Catheter Used: 100mm SonoPlex II Local Anesthetic Bolus (Indicate Dose Given): Lidocaine used for local infiltration of skin, Injected in 3-5ml increments after negative blood aspiration, Bupivacaine 0.5% Dose:: 10 ml and Exparel Dose:: 10 ml Additives (Indicate Dose Given): None Ultrasound: Sterile probe cover and gel used Nerve Stimulator: Supplement to Ultrasound use and No twitch or parasthesia noted < 0.5 mA Paresthesia: None Procedure Tolerated: No Complications and Patient tolerated well Procedure Outcome: Successful Performed By: Gideon Oviedo
[2022-10-24] MEDS: EPINEPHrine 30 MG/30 ML VIAL (08:24)
[2022-10-24] MEDS: ACETAMINOPHEN 1,000 MG/100 ML BTL 400 MG IVPB (10:22)
[2022-10-24] MEDS: Ketorolac 15 MG/ML VIAL IVP (10:22)
--- NOTE | 2022-10-24 12:15 | W.ANESPOSTOP ---
Postoperative Evaluation Date, Time and Location Date Performed: 10/24/22 Time Performed: 12:15 Patient Location: Day Surgery Unit Vital Signs Most Recent Imported Vital Signs: Most Recent Vital Signs Temp Pulse Resp BP Pulse Ox 36.4 C L 69 16 100/73 93 10/24/22 11:50 10/24/22 11:50 10/24/22 11:50 10/24/22 11:50 10/24/22 11:50 Pain Score Most Recent Pain Score: Most Recent Pain Score Pain Level 0 10/24/22 11:50 Assessment Mental Status: Awake (Alert & Oriented to Patient Baseline) Airway and Respiratory Function: Patent airway with normal (patient baseline) respiratory exam Cardiovascular Function: Hemodynamically Stable Hydration Status: Adequately Hydrated Nausea & Vomiting: No Nausea or Vomiting Pain: Pt. Denies Any Pain Peripheral Nerve Block: Regional nerve block not resolved at time of post operative discharge
== END 2022-10-24 12:35 | disposition home or self-care (01) ==
PROVIDERS: PCP Nurse Practitioner Family; Visit Provider Student in an Organized Health Care Education/Training Program
PROC: (CPT 29827; principal; 2022-10-24 07:30)
DX: M75.102 Unspecified rotator cuff tear or rupture of left shoulder, not specified as traumatic (principal); M19.012 Primary osteoarthritis, left shoulder; S43.432A Superior glenoid labrum lesion of left shoulder, initial encounter; X58.XXXA Exposure to other specified factors, initial encounter; M75.42 Impingement syndrome of left shoulder; M75.52 Bursitis of left shoulder; M75.22 Bicipital tendinitis, left shoulder
CPT/HCPCS: 29827; 29828; 29826; 29823; J0131; J0690; J1100; J1885; J2250; J2370; J2405; J2704

== ENCOUNTER 2023-06-19 02:34 | Outpatient (CLI) | payer OTHER, SELFPAY ==
[2023-06-19 11:48] LABS: Estimated GFR 84.05 (mL/min/1.73m2); Potassium 3.7 mmol/L (3.5-5.1)
[2023-06-19 21:26] LABS: PSA, Screening 1.1 ng/mL (<=4.5)
== END 2023-06-19 02:35 | disposition home or self-care (01) ==
LOC: LBO 02:34
PROVIDERS: PCP Nurse Practitioner Family; Visit Provider Nurse Practitioner Family
DX: I10 Essential (primary) hypertension (principal); Z12.5 Encounter for screening for malignant neoplasm of prostate
CPT/HCPCS: 36415; 84153; 82565; 84132

== ENCOUNTER 2023-10-02 06:24 | Day surgery (SDC) | payer OTHER, SELFPAY ==
[2023-10-02 06:35] VITALS: BP 129/83; PULSE 75; RESP 16; TEMP 36.7; O2SAT 75
--- NOTE | 2023-10-02 07:04 | W.PM.DSUDISC ---
Date of service: 10/02/23 Time of Service: 11:30 Discharge Plan Disposition Patient Disposition: Home Condition: Stable Discharge Details Attending Provider: Michael Hnug Primary Care Provider: Kee Portillo Home Meds and New Rx's Prescriptions: Continued pantoprazole 40 mg tablet,delayed release (DR/EC) 40 mg PO HS Qty: 90 3RF amlodipine 5 mg tablet 5 mg PO HS Qty: 90 3RF losartan-hydrochlorothiazide 100-25 mg tablet 1 tab PO HS Qty: 90 3RF Discharge Instructions Additional Instructions: Surgery: Left small finger trigger release Activity: Protect hand for a few weeks. Gently increase finger motion and hand gripping to prevent stiffness. Recommend elevation to minimize swelling and discomfort. Prescriptions: None Resume home medicines, use [id number] Tylenol (acetaminophen) as needed for mild pain and ibuprofen (Motrin) or naproxen (Aleve) as needed for moderate to severe pain and swelling. Dressings: Leave dressing in place for 3 days. May then remove and leave open to air or cover incision with Band-Aid. May get wet after 5 days. Follow-up: 10-[address] Hung Please call the office during business hours with any questions or concerns. Stand Alone Forms: Emi Dewey ([facility]) Referrals: Michael Hung MD [ [facility] STAFF PHYSICIAN] - 10/13/23 1:30 pm Discharge Orders Discharge Orders: Discharge Order (Routine); Ordered 10/02/23 Ordered By: Vance Stahl DS: Diagnosis Discharge Diagnosis (1) Trigger finger, left little finger: Status: Acute
--- NOTE | 2023-10-02 07:19 | ROE_ITS ---
Date of service: 10/02/23 Time of Service: 07:30 Operative Note Operative Note DATE OF PROCEDURE: 10/02/23 PRE-OP DIAGNOSIS: Left small finger trigger finger PROCEDURE: Left small finger trigger release, CPT# 75992 SURGEON: Michael Hung INSTALLATION SUPERINTENDENT: None None ANESTHESIA TYPE: Local By Surgeon Refer to Anesthesia Record ESTIMATED BLOOD LOSS: 1 TOURNIQUET TIME: 0 COMPLICATIONS: None Patient was transported to: same day Patient's condition: stable Indications: Please see complete medical record for details. Procedure Description: In the operating room, the patient was positioned supine on the stretcher. All bony prominences were padded. Preoperative antibiotics were omitted. The correct patient, procedure, and side of the procedure were all verified prior to beginning. Local anesthesia was induced about the site with 10cc of 1% lidocaine containing epinephrine buffered with 1 cc of sodium bicarbonate. The Left hand was prepped and draped in the usual sterile fashion. Proper analgesia was confirmed. A small volar transverse skin crease approach was made overlying the Left small finger MCP joint. Soft tissues were swept to the sides and retracted to expose the A1 yousuf. The release was started centrally with a knife and completed at the proximal and distal margins with te notomy scissors. Care was taken to protect the flexor tendons. The tendons were inspected and showed some bulbous degeneration, but no significant tearing. Appropriate flexor tendon excursion was confirmed. The patient readily demonstrated full range of motion of the finger without triggering. The small incision was irrigated and then dried. Hemostasis was appropriate. The incision was closed using 3-0 nylon in a horizontal mattress fashion. Xeroform was applied followed by gauze and the hand was gently compressed with an Matt bandage. The patient tolerated local anesthesia without complication and was transferred out of the operating room in a stable condition.
[2023-10-02] MEDS: Sodium Bicarbonate 50 MEQ/50 ML VIAL (07:40)
[2023-10-02] MEDS: Lidocaine 1% Multi-Dose W/EPI 1/100,000 50 ML VIAL (07:40)
[2023-10-02 08:03] VITALS: BP 129/84; PULSE 72; RESP 16; TEMP 36.7; O2SAT 97
== END 2023-10-02 08:25 | disposition home or self-care (01) ==
PROVIDERS: PCP Nurse Practitioner Family; Visit Provider Student in an Organized Health Care Education/Training Program
PROC: (CPT 26055; principal; 2023-10-02 07:30)
DX: M65.352 Trigger finger, left little finger (principal)
CPT/HCPCS: 26055; J2004

== ENCOUNTER 2023-11-20 13:42 | Emergency (ER) | payer OTHER, SELFPAY ==
[2023-11-20] VITALS (10 sets, daily range): BP systolic 114–145; BP diastolic 59–96; PULSE 63–76; RESP 16–18; TEMP 36.6; O2SAT 94–97
--- NOTE | 2023-11-20 13:30 | RT.EKG_ITS ---
APPROVED REPORT Exam: Resting ECG Reason for Exam: Chest Pain Patient Location: E HR:73 bpm ECG Measurements Heart Rate 73 AXIS NV 176 P 43 QRSd 94 QRS 74 QT 379 T 29 QTc 420 Conclusion Sinus rhythm...normal P axis, V-rate 60- 99 Normal [place]in Normal Electrocardiogram There are no significant changes compared to prior EKG performed on 09/27/2021 at 11:20.
--- NOTE | 2023-11-20 13:51 | ED.GENADUL_ITS ---
Discharge Plan Disposition Patient Disposition: Home Condition: Good Discharge Details Clinical Impression: Chest pain Primary Care Provider: Kee Portillo ED Provider: Vladimir Kim Weiser Meds and New Rx's Prescriptions: Continued pantoprazole 40 mg tablet,delayed release (DR/EC) 40 mg PO HS Qty: 90 3RF amlodipine 5 mg tablet 5 mg PO HS Qty: 90 3RF losartan-hydrochlorothiazide 100-25 mg tablet 1 tab PO HS Qty: 90 3RF Discharge Instructions Instructions: Chest Pain (ED) Additional Instructions: You were seen in the ED for chest pain. Your exam, EKG, chest x-ray, laboratory studies are reassuring at this time. However, we strongly recommend follow-up with primary care and outpatient stress testing as soon as possible to completely evaluate for potential cardiac etiology. Please contact your primary care on Thursday. If you develop any new or worsening pain, shortness of breath, radiation of pain, syncope, lightheadedness, abdominal pain or back pain, other concerns return to the ED immediately. Referrals: Kee Portillo, PHYSICAL DESIGN ENGINEER [Primary Care Provider] - Discharge Data Discharge Date/Time-TO BE ENTERED AT DEPARTURE: 11/20/23 18:27 HPI General Mode of arrival: ambulatory . Date/Time Provider Initiated Documentation: 11/20/23 13:51 . Limitations to Documentation: no limitations . Information obtained by: patient, RN notes reviewed and old records reviewed . HPI Narrative: Patient presenting to ED with complaint of chest pain. Patient reports noticing chest pain that was minimal and intermittent this morning. For about the last 45 minutes he has had constant and persistent left-sided chest pain without radiation. He was sitting at his desk when it started. It did not resolve like it had been this morning. Previously has never really had any type of chest pain or any issues with exertion. Denies any lightheadedness, diaphoresis, shortness of breath, nausea, abdominal pain, back pain. He does have history of hypertension, no other cardiac risk factors. Does have brothers with history of thoracic aneurysms. He has no history of leg pain, leg swelling or history of blood clots. Pain is not pleuritic in nature. No recent illnesses, no fever or cough. Related Data Home Medications Medication Instructions Recorded Confirmed pantoprazole 40 mg tablet,delayed 40 mg PO HS #90 tabs 10/22/22 11/20/23 release amlodipine 5 mg tablet 5 mg PO HS #90 tabs 03/26/23 11/20/23 losartan 100 1 tab PO HS #90 tabs 03/26/23 11/20/23 mg-hydrochlorothiazide 25 mg tablet Previous Rx's Medication Instructions Recorded pantoprazole 40 mg tablet,delayed 40 mg PO HS #90 tabs 10/22/22 release amlodipine 5 mg tablet 5 mg PO HS #90 tabs 03/26/23 losartan 100 1 tab PO HS #90 tabs 03/26/23 mg-hydrochlorothiazide 25 mg tablet Allergies Allergy/AdvReac Type Severity Reaction Status Date / Time No Known Drug Allergies Allergy Other (See Unverified 11/20/23 17:45 Comment) General Stated Complaint: Chest Pain KASH: 3 Review of Systems Narrative: per HPI Exam Narrative Exam Narrative: Const: WDWN male in NAD. VS per triage. HEENT: NC/AT. Normal facial exam. Eyes: Normal conjunctiva and sclera. Neck: Supple. Trachea midline. Lungs: Normal respiratory effort. Lungs are clear. No chest wall tenderness. Cor: RRR without murmur. Good radial pulses. GI: Soft. NT/ND. No guarding or rebound. Neuro: A+O x 3. Normal speech, mentation, gait. Cranial nerves II - XII grossly intact. No gross motor or sensory deficit. Ext: No C/C/E. No calf tenderness. Skin: Warm and dry without rash. Course Vital Signs Vital signs: Vital Signs Temperature 97.9 F 11/20/23 13:46 Pulse 76 11/20/23 13:46 Respiratory Rate 18 11/20/23 13:46 Blood Pressure 141/96 H 11/20/23 13:46 Pulse Oximetry 97 11/20/23 13:46 Temperature 97.9 F 11/20/23 13:46 Temperature Source Skin 11/20/23 13:46 Pulse 76 11/20/23 13:46 Respiratory Rate 18 11/20/23 13:46 Respiratory Effort Normal 11/20/23 13:49 Blood Pressure 141/96 H 11/20/23 13:46 Blood Pressure Position Sitting 11/20/23 13:46 Pulse Oximetry 97 11/20/23 13:46 Oxygen Delivery Method Room Air 11/20/23 13:46 Oxygen Flow Rate 0 05/03/24 13:46 Medical Decision Making Patient presenting to ED with left-sided chest pain that has been minor and intermittent this morning but became persistent and more intense this afternoon. Here in the ED minimal pain but still some discomfort. No radiation of pain or associated symptoms. Only risk factor for cardiac disease is hypertension. Brothers have history of thoracic aneurysms. Patient is hemodynamically stable and symptoms do not really fit dissection or aneurysm. Pain is not pleuritic making PE less likely. Certainly could be cardiac in nature. His EKG is sinus rhythm and normal and unchanged from previous. Will give aspirin and sublingual nitroglycerin pending workup given possibility of ACS. Laboratory studies sent. Chest imaging based upon D-dimer result. Patient does think nitroglycerin may be helped though it was not immediate. After total of 3 he reports no chest pain and no return of chest pain. Never developed any associated symptoms or radiation. His D-dimer came back negative so chest x-ray was ordered. Per my read as well as radiology read this is negative for acute cardiopulmonary process. Laboratory studies are unremarkable other than a potassium of 3.3 likely related to his hydrochlorothiazide use. His initial troponin was less than 50. Repeat troponin at 3 hours remains less than 50. Patient and I had a discussion regarding his chest pain. Presentation does not appear consistent with aortic dissection. No evidence of significant dilatation on chest x-ray to suggest aneurysm and again symptoms not consistent with thoracic aneurysm. D-dimer with low probability of PE is negative so this etiology very unlikely. He has a normal EKG and normal troponins which would seemingly make cardiac disease unlikely. However, he is older and does have risk factors. I give him a HEART score of 3. Strongly encouraged to contact primary care on Thursday for outpatient stress testing. We discussed admission to the hospital over the weekend and stress testing on Thursday which he declined. We did discuss return precautions and what to come back for this weekend. Medical Records Medical records reviewed: Yes I reviewed the patient's medical records. Lab Data Lab results reviewed: Yes I reviewed the patient's lab results. ECG Data Attestation: I personally reviewed and interpreted this ECG (s) as follows: Critical Care Time Critical Care Time Critical Care Time: Yes Total Critical Care Time: 40 Attestation: Upon my evaluation, this patient had a high probability of imminent or life- threatening deterioration, which required my direct attention, intervention, and personal management. I have personally provided 40 minutes of critical care time exclusive of time spent on separately billable procedures. Time includes review of laboratory data, radiology results, discussion with consultants, and monitoring for potential decompensation. Interventions were performed as documented above. PFSH All Active Problems (Updated 11/20/23 @ 18:04 by Vladimir Kim MD) Chest pain (Acute) Tendinitis of long head of biceps brachii of left shoulder (Acute) Impingement syndrome of left shoulder (Acute) Bursitis of left shoulder (Acute) Arthritis of left glenohumeral joint (Acute) Pityriasis versicolor (Acute) Other retinal detachments (Acute) left; vision loss Obstructive sleep apnea (Acute 08/11/17) No use of machines Low back pain (Acute) Hearing loss (Acute) right Family history of abdominal aortic aneurysm (Acute 12/07/13) one brother AAA Patient with normal abdominal ultrasound x2, last 2020 Benign prostatic hyperplasia (Acute) Vision loss of left eye (Acute) Status post remote hockey injury, hit in eye, abnormally shaped minimally reactive pupil, decreased vision Medical History Essential hypertension Generalized osteoarthrosis right hip djd right shoulder rotator cuff lesion Pupillary abnormality, right (01/03/15) 10/02/23 Pt reports pupil abnormality is of LEFT eye. FS Surgical History Left rotator cuff tear Repaired in October 2022 Trigger finger, left little finger s/p Left small finger trigger release on 10/02/23 H/O eye surgery L eye, detached retina Rotator Cuff Repair Colonoscopy - MAC 2008;NEG Family History Mother , 92 Essential hypertension Father , 79 Stroke Sister Essential hypertension Brother , 52 Essential hypertension Stomach cancer Brother , 62 Heart disease Colon cancer Maternal Grandfather Stroke Paternal Grandfather No problems noted. Maternal Grandmother No problems noted. Paternal Grandmother No problems noted. Sister No problems noted. Sister No problems noted. Brother , 69 No problems noted. Son No problems noted. Daughter No problems noted. Social History Smoking/Tobacco Use Status: Never Second Hand Exposure: Yes Smoking risk assessment performed?: Yes Alcohol Intake: current Alcohol Intake frequency: holidays/special occasions only Alcohol type: beer, wine and hard liquor Drug use: Never Substance use type: does not use Caregiver/Support person: No Household members: spouse and other Details: [facility] Housing: house Communication Needs: Hard of Hearing Do you need help understanding health information?: Never Pets and animals: Yes Pets and animals: dog(s) Sexually active: Yes Do you think of yourself as: straight/heterosexual Current gender identity: male What is your relationship status?: How often do you talk on the phone with friends or family?: once per week How often do you get together with friends or relatives?: once per week How often do you attend jain or restorationism services?: decline to answer Do you belong to any clubs or organized social groups?: no Panel score (0-1 are the most socially isolated patients): 1 What type of physical activity do you participate in: walking Duration: 60-90 minutes/day Frequency: daily Special jaye needs: No Seatbelt use: always Drive intox or ride w/intox straddle truck driver: No Do you feel safe at home: Yes Do you feel safe in your relationship?: Yes
[2023-11-20 14:10] LABS: Abs Immature Grans 0.03 10^3/uL (0.0-0.06); Absolute Basophil Count 0.11 10^3/uL (0.0-0.2); Absolute Eosinophil Count 0.28 10^3/uL (0.0-0.7); Absolute Monocyte Count 0.65 10^3/uL (0.1-0.8); Absolute Neutrophil Count 3.69 10^3/uL (1.2-6.7); Basophils % 1.7 %; Eosinophils % 4.3 %; HGB 15.7 g/dL (13.5-17.5); Immature Grans % 0.5 %; Lymphocytes % 27.4 %; MCH 31.7 pg (27.0-33.0); MCHC 34.9 % (32.0-36.0); MCV 91 fL (80-95); MPV 8.7 fL (8.0-11.0); Monocytes % 9.9 %; Neutrophils % 56.2 %; Platelet Count 223 10^3/uL (130-400); RBC 4.96 10^6/uL (4.36-5.78); RDW 12.2 % (11.8-14.1); RDW-SD 40.4 fL; WBC 6.56 10^3/uL (4.4-10.8)
[2023-11-20] MEDS: Aspirin 81 MG CHEW 324 MG CH (14:10)
[2023-11-20] MEDS: nitroGLYcerin 0.4 MG TAB SL ×3 (14:11→14:50)
[2023-11-20 14:28] LABS: ALT 45 U/L (16-63); AST 26 U/L (15-37); Albumin 4.1 g/dL (3.4-5.0); Alkaline Phosphatase 51 U/L (46-116); Anion Gap 9.3 mmol/L (3-11); BUN 12 mg/dL (7-18); Bilirubin, Total 0.7 mg/dL (0.2-1.0); CO2 28.7 mmol/L (21.0-32.0); CREATININE 0.9 mg/dL (0.70-1.30); Calcium 8.8 mg/dL (8.5-10.1); Chloride 102 mmol/L (98-107); Estimated GFR 95.37 (mL/min/1.73m2); Glucose 122 mg/dL (74-106); Potassium 3.3 mmol/L (3.5-5.1); Sodium 140 mmol/L (136-145); Troponin I < 50 ng/L (< or =60)
[2023-11-20 14:40] LABS: D-Dimer 304 ng/mlFEU (<500)
--- NOTE | 2023-11-20 15:49 | DI.RAD_ITS ---
Exam(s) XR CHEST 2V PA LATERAL EXAM: XR CHEST 2V PA LATERAL CLINICAL HISTORY: CP. TECHNIQUE: 2D digital imaging was performed. COMPARISON: CR CHEST 2 VIEWS PA,LAT from 09/19/2009 FINDINGS: 2 views: There is tenting of the right rachele diaphragm, more so than previous Heart size is normal. The mediastinum is not widened. Lungs are clear. No infiltrates nor pleural effusions. IMPRESSION: No acute pulmonary findings. There is tenting of the right hemidiaphragm noted anteriorly. This has increased from the most recen t chest x-ray of September 2009. DATA REPOSITORY: RADIATION DOSE DELIVERED:
[2023-11-20 17:56] LABS: Troponin I < 50 ng/L (< or =60)
== END 2023-11-20 18:27 | disposition home or self-care (01) ==
PROVIDERS: Emergency Provider Emergency Medicine; PCP Nurse Practitioner Family
DX: R07.9 Chest pain, unspecified (principal); I10 Essential (primary) hypertension; Z84.89 Family history of other specified conditions
CPT/HCPCS: 80053; 93005; 99285; 71046; 83735; 84484; 85025; 85379; 93010; 99284

== ENCOUNTER → 2023-12-03 02:06 | Outpatient (CLI) | payer OTHER, SELFPAY ==
--- NOTE | 2023-12-03 06:20 | ETT_ITS ---
APPROVED REPORT Exam: Exercise Treadmill Patient Location: Out-Patient Room/Bed: Stress Nurse: Arianna Damon RN Ordering Provider:MARY URIBE, Contact Number: [phone] BMI: 28.45 Baseline Rhythm: Sinus Rhythm Indications: Chest pain, Medical History Medical History: HTN, chest pain, ROSA, family hx AAA Cardiac Medications: Amlodipine, losartan-hydrochlorothiazide, pantoprazole Allergies: NKA Cardiac Risk Factors: Family hx, HTN Previous Cardiac Procedures: None Pretest Chest Pain Characteristics: None Exercise History: Physically active Physical Disabilities: None Lung Sounds: Clear to auscultation Heart Sounds: Regular Stress Test Details Test: Exercise stress testing was performed using a Delonte protocol. Rest Stress HR Resting HR Supine: 60 bpm Max Heart Rate (APMHR): 156 bpm Resting HR Standin bpm Target HR (85% APMHR): 133 bpm Max HR Achieved: 124 bpm % of APMHR: 79 Recovery HR: 68 bpm HR response to stress: Blunted HR response to stress BP Resting BP Supine: 128/80 mmHg Resting BP Standin/72 mmHg Max BP: 168/78 mmHg Recovery BP: 130/70 mmHg BP response to stress: Normal blood pressure response to stress. ECG Resting ECG: Sinus Rhythm Ectopy: None Stress ECG: Sinus Tachycardia ST Change: Nondiagnostic low heart rate Comment: Very difficult to interpret EKG due to significant artifact Recovery ECG: Sinus Rhythm Recovery ST Change: Nondiagnostic low heart rate Recovery Arrhythmia: Occasional PVC's Clinical Reason for Termination: Fatigue, siginificant artifact Stress Symptoms: General Fatigue Exercise duration: 09 min11 sec Highest Stage Reached: Stage 3: 3.4 mph at 14% grade. Exercise capacity: 10.47 METs Angina Score: None Souza Treadmill Score: 8.2 Rate Pressure Product: [id number] Stress ECG Conclusion 1. Resting EKG showed minor inferior ST abnormalities 2. Patient exercised on the Delonte protocol and completed a workload of 10.47 METS, limited by fatigue 3. Normal hemodynamic response to exercise. Peak heart rate achieved was 79% of predicted for age 4. There were no symptoms of chest discomfort 5. The electrocardiographic portion of the test was nondiagnostic due to inadequate heart rate 6. There were no significant dysrhythmias Souza Treadmill Score is 8.2 which is Low risk. Stress Test Summary STAGE Time (mins) Speed (mph) Grade (%) HR BP SpO2 SYMPTOMS METS Supine 60 128/80 96 Standing 66 130/72 1 3 1.7 10 94 150/72 4.5 2 6 2.5 12 108 160/80 7 3 9 3.4 14 120 10 1 min recovery 94 168/78 3 min recovery 74 146/90 6 min recovery 68 130/70
== END ==
PROVIDERS: PCP Nurse Practitioner Family; Visit Provider Nurse Practitioner Family
DX: R07.9 Chest pain, unspecified (principal)
CPT/HCPCS: 93017